=== PATIENT | female | born 1985 | race Caucasian/White ===

== ENCOUNTER 2021-01-10 13:11 | Emergency (ER) | payer OTHER ==
[~2021-01-10 13:11] MED LIST: AUGMENTIN 875-1 EACH PO; TRANSDERM-SCOP1 EACH TOP; ZOFRAN ODT 4 MG4 MG PO; ZYRTEC10 M3 PO
[2021-01-10 14:14] LABS: HEMOGLOBIN 12.8 gm/dl (12.3-15.3); RED BLOOD COUNT 4.61 M/UL (4.00-5.10); WHITE BLOOD COUNT 8.7 K/UL (4.5-11.0)
[2021-01-10 14:24] LABS: BUN/CREATININE RATIO 19 (0-10)
[2021-01-10] MEDS ORDERED: CLINDAMYCIN HC300 MG PO (16:07)
== END 2021-01-10 16:23 | disposition home or self-care (01) ==
LOC: ER1 13:11
PROVIDERS: Physician Assistant
DX: K04.7 Periapical abscess without sinus (principal); Z90.49 Acquired absence of other specified parts of digestive tract; Z90.89 Acquired absence of other organs; F17.290 Nicotine dependence, other tobacco product, uncomplicated; Z79.899 Other long term (current) drug therapy
CPT/HCPCS: 70487; 80048; 85025; 87040; 99284; Q9963

== ENCOUNTER 2022-02-04 22:07 | Emergency (ER) | payer OTHER ==
[~2022-02-04 22:07] MED LIST changes: +CLINDAMYCIN HC300 MG PO
== END 2022-02-05 01:38 | disposition home or self-care (01) ==
LOC: ER1 22:07
DX: M79.651 Pain in right thigh (principal)
CPT/HCPCS: 99283; J1650